=== PATIENT | female | born 1955 | race Caucasian/White ===

== ENCOUNTER → 2017-01-30 | Outpatient (CLI) | payer OTHER | LOC: FIMAGING 14:43 | DX: Z12.31 Encounter for screening mammogram for malignant neoplasm of breast (principal); Z80.3 Family history of malignant neoplasm of breast | CPT/HCPCS: G0202 ==

== ENCOUNTER 2017-07-07 19:11 | Emergency (ER) | payer OTHER ==
[2017-07-07 19:17] VITALS: TEMP 98.6
--- NOTE | 2017-07-07 19:48 | EDPHY ---
H & P Time Seen by Provider: 07/07/17 19:47 HPI/ROS: Chief complaint. Vomiting, abdominal pain HPI. 62-year-old female presents emergency department with nausea vomiting and some diarrhea. Generalized abdominal pain but especially in the mid abdomen. It is worse with movement. No fever chills. No chest discomfort or shortness of breath. She has had similar symptoms with food poisoning in the past. Denies urinary symptoms. No abdominal surgery. ROS Constitutional. no fever/chills, no weakness Eyes. no problems with vision ENT. no sore throat, no nasal drainage Cardiovascular. no chest pain Respiratory. no shortness of breath, no cough Abdominal. Abdominal pain with nausea vomiting and diarrhea . no problems urinating MS. no calf pain/swelling, no neck/back pain, no joint pain Skin. no rash Lymph. no swollen glands Neuro. no headache, no dizziness, no difficulty walking or with speech Past Medical/Surgical History: Past medical history is significant for achalasia, dyslipidemia, depression, glaucoma Social History: , nonsmoker, no alcohol Smoking Status: Never smoked Physical Exam: General Appearance: Alert well-developed female moderate distress vital signs are stable Eyes: Pupils equal and round no pallor or injection. ENT, Mouth: Mucous membranes are moist. Respiratory: There are no retractions, lungs are clear to auscultation. Cardiovascular: Regular rate and rhythm. Gastrointestinal: Abdomen is soft and diffusely tender. Decreased bowel sounds. No masses. Neurological: Awake and alert, sensory and motor exams grossly normal. Skin: Warm and dry, no rashes. Musculoskeletal: Neck is supple nontender. Extremities symmetrical, full range of motion. Psychiatric: Patient is oriented X 3, there is no agitation. Constitutional: Initial Vital Signs Temperature (C) 37.0 C 07/07/17 19:12 Heart Rate 88 07/07/17 19:12 Respiratory Rate 18 07/07/17 19:12 Blood Pressure 131/73 H 07/07/17 19:12 O2 Sat (%) 96 07/07/17 19:12 O2 Delivery Mode Room Air Allergies/Adverse Reactions: No Known Allergies Allergy (Unverified 05/16/13 06:18) Home Medications: Medication Instructions Recorded Crestor 07/07/17 Lexapro 07/07/17 Lumigan 0.01% (*) 07/07/17 MINOCYCLINE HCL 07/07/17 Medical Decision Making - Diagnostics Imaging Results: Imaging Impressions Abdomen CT 07/07/17 20:17 Impression: Essentially negative. I telephoned results to Dr. Henri Read at [address] abdomen pelvis with IV contrast reviewed by me and discussed with Dr. Dyer is normal Procedures: IV normal saline. Zofran for nausea. Morphine for pain. ED Course/Re-evaluation: Re-evaluation at 10:45 p.m.--patient is stable. She still somewhat nauseated though no vomiting. We will give her some IV Phenergan. The patient, her , and I discussed imaging and lab results. We discussed treatment plan including criteria for return importance of follow-up and further evaluation. She expresses understanding and agreement Differential Diagnosis: This could be food poisoning or stomach bug. I considered diverticulitis, appendicitis as well. The patient does have some element of dehydration which has been treated with IV fluids - Data Points Laboratory Results: Laboratory Results 07/07/17 20:46 07/07/17 20:46 07/07/17 07/07/17 20:46 20:46 WBC 5.72 10^3/uL 10^3/uL (3.80-9.50) RBC 4.69 10^6/uL 10^6/uL (4.18-5.33) Hgb 13.8 g/dL g/dL (12.6-16.3) Hct 39.4 % % (38.0-47.0) MCV 84.0 fL fL (81.5-99.8) MCH 29.4 pg pg (27.9-34.1) MCHC 35.0 g/dL g/dL (32.4-36.7) RDW 13.4 % % (11.5-15.2) Plt Count 129 10^3/uL L 10^3/uL (150-400) MPV 10.5 fL fL (8.7-11.7) Neut % (Auto) 84.8 % H % (39.3-74.2) Lymph % (Auto) 8.7 % L % (15.0-45.0) [place] % (Auto) 4.7 % % (4.5-13.0) Eos % (Auto) 1.0 % % (0.6-7.6) Baso % (Auto) 0.5 % % (0.3-1.7) Nucleat RBC Rel Count 0.0 % % (0.0-0.2) Absolute Neuts (auto) 4.84 10^3/uL 10^3/uL (1.70-6.50) Absolute Lymphs (auto) 0.50 10^3/uL L 10^3/uL (1.00-3.00) Absolute Monos (auto) 0.27 10^3/uL L 10^3/uL (0.30-0.80) Absolute Eos (auto) 0.06 10^3/uL 10^3/uL (0.03-0.40) Absolute Basos (auto) 0.03 10^3/uL 10^3/uL (0.02-0.10) Absolute Nucleated RBC 0.00 10^3/uL 10^3/uL (0-0.01) Immature Gran % 0.3 % % (0.0-1.1) Immature Gran # 0.02 10^3/uL 10^3/uL (0.00-0.10) Sodium 136 mEq/L mEq/L (134-144) Potassium 4.0 mEq/L mEq/L (3.5-5.2) Chloride 101 mEq/L mEq/L (97-110) Carbon Dioxide 20 mEq/l L mEq/l (22-31) Anion Gap 15 mEq/L mEq/L (8-16) BUN 8 mg/dL mg/dL (7-23) Creatinine 0.6 mg/dL mg/dL (0.6-1.0) Estimated GFR > 60 Glucose 105 mg/dL H mg/dL (70-100) Calcium 9.4 mg/dL mg/dL (8.5-10.4) Lipase 34.0 IU/L IU/L (23-300) Medications Given: Discontinued Medications Sodium Chloride (Ns) 1,000 mls @ 0 mls/hr IV EDNOW ONE; Wide Open PRN Reason: Protocol Stop: 07/07/17 20:18 Last Admin: 07/07/17 20:47 Dose: 1,000 mls Morphine Sulfate (Morphine) 6 mg IVP EDNOW ONE Stop: 07/07/17 21:57 Last Admin: 07/07/17 22:13 Dose: 2 mg Ondansetron HCl (Zofran) 4 mg IVP EDNOW ONE Stop: 07/07/17 20:18 Last Admin: 07/07/17 20:47 Dose: 4 mg Ondansetron HCl (Zofran) 4 mg IVP EDNOW ONE Stop: 07/07/17 22:26 Last Admin: 07/07/17 22:25 Dose: 4 mg Departure - Departure Disposition: Home, Routine, Self-Care Clinical Impression: Abdominal pain Qualifiers: Abdominal location: generalized Qualified Code(s): R10.84 - Generalized abdominal pain Condition: Good Instructions: Acute Nausea and Vomiting (ED) Additional Instructions: Frequent, small sips fluids. Gradual diet advancement. Zofran if needed for nausea and vomiting and may use 1 pill every 2-4 hours as needed for nausea. Return for worsening pain, fever, vomiting. Recheck in 1-2 days if not improved Referrals: Lakshmi Reese MD [Primary Care Provider] - 1 day, if not improved
[2017-07-07] MEDS ORDERED: NS 1,000 ML IV ONE ×2 (20:17→22:53)
[2017-07-07] MEDS ORDERED: ONDANSETRON 4 MG/2 ML VIAL IVP ONE ×2 (20:17→22:25)
[2017-07-07] MEDS ORDERED: IOPAMIDOL (ISOVUE-300) 100 ML BTL ONE (20:20)
[2017-07-07 21:47] LABS: % IMMATURE GRANULYOCYTES 0.3 % (0.0-1.1); ABSOLUTE IMMATURE GRANULOCYTES 0.02 10^3/uL (0.00-0.10); ADD DIFF? NO; ADD MORPH? NO; ADD SCAN? NO; ATYPICAL LYMPHOCYTE FLAG 70 (0-99); FRAGMENT RBC FLAG 0 (0-99); HEMATOCRIT 39.4 % (38.0-47.0); HEMOGLOBIN 13.8 g/dL (12.6-16.3); LEFT SHIFT FLG 10 (0-99); LIPEMIA HEMOLYSIS FLAG 90 (0-99); MEAN CELL HEMOGLOBIN 29.4 pg (27.9-34.1); MEAN PLATELET VOLUME 10.5 fL (8.7-11.7); PLATELET CLUMPS FLAG 30 (0-99); PLATELET COUNT 129 10^3/uL (150-400); RED BLOOD CELL COUNT 4.69 10^6/uL (4.18-5.33); RED CELL DISTRIBUTION WIDTH 13.4 % (11.5-15.2)
[2017-07-07 21:52] LABS: ANION GAP 15 mEq/L (8-16); CALCIUM 9.4 mg/dL (8.5-10.4); CARBON DIOXIDE 20 mEq/l (22-31); CHLORIDE 101 mEq/L (97-110); CREATININE 0.6 mg/dL (0.6-1.0); GLOMERULAR FILTRATION RATE > 60; GLUCOSE 105 mg/dL (70-100); SODIUM 136 mEq/L (134-144)
[2017-07-07] MEDS ORDERED: ONDANSETRON 4 MG/2 ML VIAL ONE (22:16)
[2017-07-07] MEDS ORDERED: PROMETHAZINE HCL 25 MG/ML INJ IVP ONE (22:53)
[2017-07-07] MEDS ORDERED: ONDANSETRON 4MG PREPACK#2 BTL TAKEHOME ONE (22:54)
[2017-07-07 23:05] VITALS: BP 126/84; RESP 18
[2017-07-08 00:11] VITALS: PULSE 76; O2SAT 94
== END 2017-07-08 00:11 | disposition home or self-care (01) ==
LOC: EEVIPCON 19:11
DX: R10.84 Generalized abdominal pain (principal); E86.9 Volume depletion, unspecified
CPT/HCPCS: 96374; J2405; J2550; Q9967

== ENCOUNTER 2017-10-05 12:36 | Day surgery (SDC) | payer OTHER ==
[2017-10-05] MEDS ORDERED: LR 1,000 ML IV ONE (13:09)
[2017-10-05] MEDS ORDERED: LIDOCAINE 1% 2 ML INJ ID PRN (13:09)
[2017-10-05 13:29] VITALS: PULSE 65
[2017-10-05] MEDS ORDERED: OXYMETAZOLINE 30 ML NASAL SPRAY ONE (13:30)
[2017-10-05] MEDS ORDERED: OFLOXACIN 0.3% 5ML OPHT DROPS ONE (13:30)
[2017-10-05] MEDS ORDERED: MINERAL OIL 10 ML VIAL ONE (13:31)
--- NOTE | 2017-10-05 13:59 | PDANEPAE ---
ANE History of Present Illness here for ear tube placement ANE Past Medical History - Cardiovascular History Hx Hypertension: No Hx Arrhythmias: No Hx Chest Pain: No Hx Coronary Artery / Peripheral Vascular Disease: No Hx CHF / Valvular Disease: No Hx Palpitations: No - Pulmonary History Hx COPD: No Hx Asthma/Reactive Airway Disease: No Hx Recent Upper Respiratory Infection: No Hx Oxygen in Use at Home: No Hx Sleep Apnea: No - Endocrine History Hx Diabetes: No Hypothyroid: No Hyperthyroid: No - Renal History Hx Renal Disorders: No - Liver History Hx Hepatic Disorders: No - Neurological & Psychiatric Hx Hx Neurological and Psychiatric Disorders: No ANE Review of Systems Review of systems is: negative Review of Systems: - Exercise capacity Exercise capacity: >=4 METS ANE Patient History - Allergies Allergies/Adverse Reactions: No Known Allergies Allergy (Unverified 05/16/13 06:18) - Home Medications Home medications: home medication list seen and reviewed Home Medications: Crestor 07/07/17 [Last Taken 10/04/17] Lexapro 07/07/17 [Last Taken 10/04/17] Lumigan 0.01% (*) 07/07/17 [Last Taken 10/04/17] MINOCYCLINE HCL 07/07/17 [Last Taken 07/22/17] - NPO status NPO Status: no food or drink >8 hours NPO Since - Liquids (Date): 10/04/17 NPO Since - Liquids (Time): 20:00 NPO Since - Solids (Date): 10/04/17 NPO Since - Solids (Time): 19:00 - Anes Hx Anes Hx: no prior problems - Smoking Hx Smoking Status: Never smoked ANE Labs/Vital Signs - Vital Signs Blood Pressure: 140/85 Heart Rate: 65 Respiratory Rate: 16 O2 Sat (%): 99 ANE Physical Exam - Airway Neck exam: FROM Mallampati Score: Class 1 - Pulmonary Pulmonary: no respiratory distress - Cardiovascular Cardiovascular: regular rate and rhythym - ASA Status ASA Status: II ANE Anesthesia Plan Anesthesia Plan: GA w LMA
--- NOTE | 2017-10-05 14:07 | PDHPUP ---
History & Physical Update H&P update statement: This history and physical update is based on an assessment of the patient which was completed after admission or registration (within 24 hours), but prior to the surgery/procedure. H&P update: no change in patient's condition since H&P completed
[2017-10-05] MEDS ORDERED: PROPOFOL/EMULSION 500 MG/50 ML BOTTLE IV ONE (14:14)
[2017-10-05] MEDS ORDERED: ALBUTEROL 3 ML DEYVIAL IH PRN (14:39)
[2017-10-05] MEDS ORDERED: NALOXONE HCL 0.4 MG/ML INJ IVP PRN (14:39)
[2017-10-05] MEDS ORDERED: HYDROmorphONE/DILAUDID 1 MG/ML INJ IVP PRN (14:39)
[2017-10-05] MEDS ORDERED: DEXAMETHASONE 4 MG/ML VIAL IVP PRN (14:39)
[2017-10-05] MEDS ORDERED: LR 500 ML IV PRN (14:39)
--- NOTE | 2017-10-05 14:39 | POSTANESTH ---
Post Anesthetic Evaluation Cardiovascular Status: Normal, Stable Respiratory Status: Normal, Stable Level of Consciousness/Mental Status: Can Participate in Eval Pain Control: Adequate, Prn Tx Ordered Nausea/Vomiting Control: Adequate, Prn Tx Ordered Complications Possibly Related to Anesthesia: None Noted
[2017-10-05 15:08] VITALS: TEMP 97.3
--- NOTE | 2017-10-05 15:10 | POSTOPPROG ---
Post Op Note Date of Operation: 10/05/17 Surgeon: Ann Martin Anesthesia: GET(General Endotracheal) Pre-op Diagnosis: COME left ear with retraction Post-op Diagnosis: same Procedure: T tube placement L Findings: mucoid effusion, retraction down to [place] Inf/Abcess present in the surg proc area at time of surgery?: No EBL: Minimal Complications: none apparent
[2017-10-05 16:06] VITALS: RESP 16
[2017-10-05 16:17] VITALS: BP 138/83; O2SAT 97
== END 2017-10-05 16:05 | disposition home or self-care (01) ==
LOC: FSGY 12:36
PROVIDERS: ATTEND Otolaryngology
PROC: 09U87JZ Supplement Left Tympanic Membrane with Synthetic Substitute, Via Natural or Artificial Opening (ICD-10-PCS; principal; 2017-10-05 14:00)
DX: H65.492 Other chronic nonsuppurative otitis media, left ear (principal)
CPT/HCPCS: J2704

== ENCOUNTER → 2017-10-14 | Outpatient (CLI) | payer OTHER | LOC: BMCIMAGING 14:20 | PROVIDERS: ATTEND Orthopaedic Surgery Hand Surgery | DX: M25.531 Pain in right wrist (principal); M89.9 Disorder of bone, unspecified ==

== ENCOUNTER → 2017-12-15 | Outpatient (CLI) | payer OTHER | LOC: BMCIMAGING 14:26 | PROVIDERS: ATTEND Internal Medicine | DX: Z13.820 Encounter for screening for osteoporosis (principal); M81.0 Age-related osteoporosis without current pathological fracture; Z13.6 Encounter for screening for cardiovascular disorders; Z82.49 Family history of ischemic heart disease and other diseases of the circulatory system ==

== ENCOUNTER → 2018-03-18 | Outpatient (CLI) | payer OTHER | LOC: FIMAGING 15:27 | PROVIDERS: ATTEND Internal Medicine | DX: Z12.31 Encounter for screening mammogram for malignant neoplasm of breast (principal); Z80.3 Family history of malignant neoplasm of breast ==

== ENCOUNTER → 2018-05-01 | Outpatient (CLI) | payer OTHER | LOC: BMCIMAGING 13:49 | PROVIDERS: ATTEND Family Medicine | DX: R07.81 Pleurodynia (principal); V19.88XA Pedal cyclist (driver) (passenger) injured in other specified transport accidents, initial encounter; Y93.55 Activity, bike riding ==

== ENCOUNTER 2018-06-02 10:46 | Emergency (ER) | payer OTHER ==
--- NOTE | 2018-06-02 11:56 | EDPHY ---
General Time Seen by Provider: 06/02/18 11:45 Narrative: CHIEF COMPLAINT: Fall, head injury, wrist pain HISTORY OF PRESENT ILLNESS: Patient presents with spouse at bedside. She reports a fall just prior to arrival hiking. She says she tripped on a rock, striking the left side of her head and lying on her left arm outstretched. She has minimal pain left wrist. She has mild to moderate pain in the left forehead and face. She has no dental pain, jaw pain, neck pain. She did not lose consciousness. She has no eye pain or visual disturbance. She has no difficulty ambulating. The pain in the wrist is very minimal even when using the arm. No numbness, tingling or weakness. No back pain. No other associated complaints or modifying factors. Tetanus up-to-date less than 4 years ago REVIEW OF SYSTEMS: Ten systems reviewed and are negative unless otherwise noted in the HPI PCP: Dr. Lakshmi Reese SPECIALISTS: Dr. Ann Martin PAST MEDICAL HISTORY: Achalasia Dyslipidemia, depression, glaucoma PAST SURGICAL HISTORY: No recent surgeries SOCIAL HISTORY: Never smoker. No drug or alcohol use. Lives independently with her spouse. 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 Left eyebrow laceration and left maxillary ecchymosis. No depression. No raccoon eyes bilaterally. No Dodd sign. Eyes: Pupils equal and round, no conjunctival pallor or injection. EOMs are symmetric. There is painless range of motion with EOMs. There is no diplopia with upward outward gaze or down with our gaze. There is no hyphema or subconjunctival hemorrhage ENT, Mouth: Mucous membranes moist. Uvula is midline and airway is widely patent Neck: Normal inspection, supple, non-tender. No crepitus, step-off or deformity Respiratory: Lungs are clear to auscultation Cardiovascular: Regular rate and rhythm. No murmur Gastrointestinal: Abdomen is soft and nontender Back: non-tender, no bony abnormalities Neurological: GCS 15. A&O, nonfocal, normal gait. Strength symmetric in all 4 limbs. No pronator drift. Normal [id number] Skin: Warm and dry, no rash. 3.5 cm laceration of the left eyebrow. There is subcutaneous involvement but no foreign body, vascular injury or muscular injury Extremities: Mild tenderness of the left wrist without any snuffbox tenderness. There is symmetric range of motion of the hands, wrists and elbows. There is no pain with full extension of the left elbow. Range of motion is symmetric Psychiatric: Mood and affect normal DIFFERENTIAL DIAGNOSES: Including but not limited to concussion, maxillary fracture, orbital fracture, intracranial hemorrhage, sprain, strain, wrist fracture, complex laceration MDM: 11:50 a.m. Mechanical fall with facial and head injury just prior to arrival. There is laceration of the left eyebrow and bruising of the face. The patient does have headache and mechanism it does warrant CT scan of the head. She has no neck pain, neuro complaints or abnormal findings otherwise. She is also requesting a CT scan of the head due to the mechanism. She also has will left wrist pain imaged. She has a laceration that I will need to repair. Her tetanus is up-to- date. She is in no acute distress. 12:30 p.m. Notified by radiologist Dr. Francisco. CT scan of the head reveals a left orbital floor fracture with depression as documented. There is incidental note of a right suspected meningioma. Recommend 1 year follow-up for this. Chronic changes as noted. No other acute findings. 1:45 p.m. Laceration has been repaired without difficulty. Excellent approximation of the wound borders. Visual acuity remains intact by confrontation. She has no complaints of pain in the eye. She has normal range of motion of the forehead and eyebrow. We discussed wound care. We discussed follow up with her established ENT physician for the orbital fracture. We discussed follow up with her established orthopedist Dr. Margot Trammell for the wrist pain. We discussed follow up with primary care physician as well and to discuss whether not the patient should fly out of town this weekend. We discussed ED precautions for visual disturbance, double vision, headache, neck pain, fever, nausea, vomiting or difficulty ambulating. She is comfortable this plan and discharged home stable condition. PROCEDURE: Laceration repair Consent: Verbal Location: Left eyebrow Length of repair: 3.5 cm Complexity: Complex Layer involvement: 2 layer Anesthesia: Local. 1% lidocaine with epinephrine, 5 mL Irrigation: Extensive Debridement: None Procedure description: Following good anesthesia, the wound was copiously irrigated. Wound bed was explored with a sterile glove, and there is no foreign body noted. There is no injury to the galea or the underlying muscle belly. No injury to the eyelid or canthus. Wound borders were approximated well with good hemostasis. Tolerated well without complication. Suture/Staple material: Subcutaneous layer: 5-0 Vicryl, 4 figure 8 fashion sutures. Cutaneous layer: 6-0 Prolene, 7 running sutures. Wound care: Routine as discussed Suture/Staple removal: 7 Days SUPERVISION: This patient was independently evaluated without direct involvement of or examination by the attending physician. - Diagnostics Imaging Results: Imaging Impressions Head CT 06/02/18 11:56 Impression: 1. No intracranial trauma identified. 2. Left orbital blowout fracture. 3. Incidental small right frontal meningioma. Consider follow-up imaging in one year to evaluate for stability. Results called to VIVIENNE Carrero and 12:25 PM General information for patients regarding this examination can be found at [employer]. If you have questions or comments about this report, please contact me at (hospital) or [phone] (cell). Wrist X-Ray 06/02/18 11:56 Impression: Nothing acute identified. - History Smoking Status: Never smoked - Objective Vital Signs: Initial Vital Signs Temperature (C) 98.8 F 06/02/18 10:55 Heart Rate 84 06/02/18 10:55 Respiratory Rate 18 06/02/18 10:55 Blood Pressure 154/104 H 06/02/18 10:55 O2 Sat (%) 96 06/02/18 10:55 O2 Delivery Mode Room Air Allergies/Adverse Reactions: No Known Allergies Allergy (Verified 06/02/18 11:00) Home Medications: Medication Instructions Recorded Crestor 07/07/17 Lexapro 07/07/17 Lumigan 0.01% (*) 07/07/17 Aspirin EC [Aspirin EC 81 mg (*)] 81 mg PO DAILY 06/02/18 Hydrocodone/APAP 5/325 [[place] 1 - 2 tab PO Q4H PRN #13 tab 06/02/18 5/325 (*)] Departure - Departure Disposition: Home, Routine, Self-Care Clinical Impression: Orbital floor (blow-out) closed fracture Left wrist sprain Qualifiers: Encounter type: initial encounter Qualified Code(s): S63.502A - Unspecified sprain of left wrist, initial encounter Facial laceration Qualifiers: Encounter type: initial encounter Qualified Code(s): S01.81XA - Laceration without foreign body of other part of head, initial encounter Closed head injury Qualifiers: Encounter type: initial encounter Qualified Code(s): S09.90XA - Unspecified injury of head, initial encounter Condition: Good Instructions: Facial Fracture (ED), Head Injury (ED), Wrist Sprain (ED), Facial Laceration (ED) Additional Instructions: 1. Ice to the face often the next 48 hr 2. Pain medication as prescribed as needed 3. Contact your established orthopedist for the wrist pain for definitive care 4. Contact her established Ear Nose and Throat physician for the left orbital fracture 5. Contact primary care physician for outpatient follow-up overall care 6. Return here for any increasing headache, decreasing vision, double vision, difficulty moving her eyes, neck pain, fever, chills 7. You will need to return here in 7 days for your suture removal. You do not need an appointment. Referrals: Lakshmi Reese MD [Primary Care Provider] - As per Instructions Philippe Trammell MD [Medical Doctor] - As per Instructions Ann Martin MD [Medical Doctor] - As per Instructions Stand Alone Forms: Work Excuse Prescriptions: Hydrocodone/APAP 5/325 [[place] 5/325 (*)] 1 - 2 tab PO Q4H PRN #13 tab PRN Reason: Pain, Moderate
[2018-06-02 14:07] VITALS: BP 148/89
== END 2018-06-02 14:14 | disposition home or self-care (01) ==
PROC: 0HQ1XZZ Repair Face Skin, External Approach (ICD-10-PCS; principal; 2018-06-02)
DX: S02.32XA Fracture of orbital floor, left side, initial encounter for closed fracture (principal); S01.112A Laceration without foreign body of left eyelid and periocular area, initial encounter; S63.502A Unspecified sprain of left wrist, initial encounter; Z79.82 Long term (current) use of aspirin; W01.198A Fall on same level from slipping, tripping and stumbling with subsequent striking against other object, initial encounter; Y99.8 Other external cause status; Y93.01 Activity, walking, marching and hiking
CPT/HCPCS: L3807

== ENCOUNTER → 2019-05-09 | Outpatient (CLI) | payer OTHER | LOC: FIMAGING 11:36 ==